=== PATIENT | female | born 1940 | race Asian ===

== ENCOUNTER 2017-04-30 13:27 | Emergency (ER) | END 2017-04-30 16:05 | disposition home or self-care (01) | DX: R42 Dizziness and giddiness (principal) | CPT/HCPCS: 36415; 80053; 81003; 83690; 84484; 85025; 93005; 96374; 99284; J2060; J7030 ==

== ENCOUNTER 2017-11-16 19:36 | Emergency (ER) | END 2017-11-17 00:09 | disposition home or self-care (01) ==